=== PATIENT | male | born 1990 | race Caucasian/White ===

== ENCOUNTER 2025-05-27 09:38 | Outpatient (AMB) | payer OTHER, SELFPAY ==
--- NOTE | 2025-05-27 09:54 | MHC.PC.OV ---
Vital Signs 05/27/25 09:57 Height 5 ft 11.85 in Weight 285 lb 6 oz BMI 38.9 BP 140/76 H Blood Pressure Location Lt brachial Position Sitting Pulse 65 Pulse Source Pulse Oximeter Temp 97.1 F Temp Source Temporal Artery Scan Pulse Oximetry (%) 98 Oxygen Delivery Method Room Air Intake Visit Reasons: [employer] MECH[employer]IC-anxiety and depression Intake Note: Patient is a new patient here to establish care for Depression, Anxiety, Hx of kidney stone, hx blood urine, GERD, Diverticulitis, Hemorrhoids. Transferring care from [facility]). Medical records have been requested and have not received. Instrument Worker Required: No Sea Foam Kiss Maker: Present Accompanied by: Spouse Allergies No Known Allergies Allergy (Verified 05/27/25 10:04) Medication List - Last Reconciled 05/27/25 by Sarkis Coats MD escitalopram oxalate (Lexapro) 10 mg PO DAILY omeprazole 20 mg PO DAILY Tobacco use date assessed: 05/27/25 Dental Screening Dental Screen Date: 05/27/25 Did you have a dental visit in the last 12 months?: No Did you have a dental problem in the last 6 months where you did not have access to dental care?: No Was dental information given to patient?: No HPI HPI Comments History of Present Illness Details The patient is a 34 year old male with PMH of DOE, GERD, Hemorrhoids, presenting for his first visit to establish care. He is currently taking omeprazole for acid reflux and Lexapro, which was prescribed about four years ago for anger issues and has been effective. He reports acid reflux symptoms every two to three days without medication, and notes that it depends on his diet, particularly soda consumption. Past medical history is significant for a hemorrhoid that has been present for two years, a broken leg at age 14 requiring a metal amairani, kidney stone removal, a pulled tooth, and a couple of dislocated joints. 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 He recently experienced a back sprain while moving about two weeks ago, which has improved with a heating pad, but he still avoids bending over too much. Family history is positive for Alzheimer's disease in his mother and maternal grandmother. He denies smoking. He has tried therapy in the past but did not find it helpful due to a poor connection with the therapist. [facility] Medical History (Updated 05/27/25 @ 11:30 by Sarkis Coats MD) Hx of nephrolithotomy with removal of calculi Surgical History (Updated 05/27/25 @ 10:09 by ARIANA Downing) History of tooth extraction History of surgery on lower extremity History of colonoscopy Family History (Updated 05/27/25 @ 10:10 by ARIANA Downing) Mother Alzheimer disease Father Bone cancer Other Mental health disorder Social History (Updated 05/27/25 @ 10:11 by ARIANA Downing) Housing: House Alcohol intake: current Alcohol intake frequency: holidays/special occasions only Patient Tobacco Use Status: Never used Tobacco e-Cigarette/Vaping Use: Never Used Second Hand Smoke Exposure: No service: No Current occupational status: employed 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 1. Little interest or pleasure in doing things: not at all 2. Feeling down, depressed, or hopeless: not at all 3. Trouble falling or staying asleep, or sleeping too much: several days 4. Feeling tired or having little energy: not at all 5. Poor appetite or overeating: several days 6. Feeling bad about yourself - or that you are a failure or have let yourself or your family down: several days 7. Trouble concentrating on things, such as reading the newspaper or watching television: not at all 8. Moving or speaking so slowly that other people could have noticed. Or the opposite - being so fidgety or restless that you have been moving around a lot more than usual: not at all 9. Thoughts that you would be better off or of hurting yourself in some way: not at all Total score: 3 Depression Screening Interpretation: Positive (Lexapro ) Depression Screening Follow-up: In treatment Depression Screening Done: Yes Source: Developed by Drs. Curtis Michaels, Jessenia Perez, Clive Chatman and colleagues, with an educational neal from [employer]. Thrive Questionnaire Date Thrive assessed: 05/27/25 I am a: Patient What is your living situation today?: I have a steady place to live Within the past 12 months, did the food you bought not last and you didn't have the money to get more?: Never true Within the past 12 months, did you worry whether your food would run out before you got money to buy more?: Never true Do you have trouble paying for medicines?: No Do you have trouble getting transportation to medical appointments?: No Do you have trouble paying your heating and electricity bill?: No Do you have trouble taking care of your child, family member or friend?: No Do you have trouble with day-to-day activities such as bathing, preparing meals, shopping, managing finances, etc.?: No Are you currently unemployed and looking for a job?: No Are you interested in more education?: No Please select the resources that you would like help with: None Currently or been in a relationship where the following occur: No concerns reported THRIVE Score: 0 AUDIT C Alcohol Use Questionnaire (AUDIT-C) 1. How often do you have a drink containing alcohol?: Monthly or less 2. How many drinks containing alcohol do you have on a typical day when you are drinking?: 1 or 2 3. How often do you have six or more drinks on one occasion?: Never Total Score: 1 DOE-7 AMB Questionnaire DOE-7 Date DOE - 7 assessed: 05/27/25 Feeling nervous, anxious, or on edge: 0 = Not at all Not being able to stop or control worryin = Not at all Worrying too much about different things: 0 = Not at all Trouble relaxin = Several days Being so restless that it is hard to sit still: 0 = Not at all Becoming easily annoyed or irritable: 1 = Several days Feeling afraid as if something awful might happen: 0 = Not at all Total DOE-7 score (0-4 normal; 5-9 mild; 10-14 moderate; 15-21 severe): 2 Source: Developed by Drs. Curtis Michaels, Jessenia Perez, Clive Chatman and colleagues, with an educational neal from [employer] Review of Systems Const Details: Positives besides what was mentioned in HPI are in BOLD Constitutional: No Weight Change, No Fever, No Chills, No Night Sweats, No Fatigue, No Malaise ENT/Mouth: No Hearing Changes, No Ear Pain, No Nasal Congestion, No Sinus Pain, No Hoarseness, No sore throat, No Rhinorrhea, No Swallowing Difficulty Eyes: No Eye Pain, No Swelling, No Redness, No Foreign Body, No Discharge, No Vision Changes Cardiovascular: No Chest Pain, No SOB, No PND, No Dyspnea on Exertion, No Orthopnea, No Claudication, No Edema, No Palpitations Respiratory: No Cough, No Sputum, No Wheezing, No Smoke Exposure, No Dyspnea Gastrointestinal: No Nausea, No Vomiting, No Diarrhea, No Constipation, No Pain, No Heartburn, No Anorexia, No Dysphagia, No Hematochezia, No Melena, No Flatulence, No Jaundice Genitourinary: No Dysmenorrhea, No DUB, No Dyspareunia, No Dysuria, No Urinary Frequency, No Hematuria, No Urinary Incontinence, No Urgency, No Flank Pain, No Urinary Flow Changes, No Hesitancy Musculoskeletal: No Arthralgias, No Myalgias, No Joint Swelling, No Joint Stiffness, No Back Pain, No Neck Pain, No Injury History Skin: No Skin Lesions, No Pruritis, No Hair Changes, No Breast/Skin Changes, No Nipple Discharge Neuro: No Weakness, No Numbness, No Paresthesias, No Loss of Consciousness, No Syncope, No Dizziness, No Headache, No Coordination Changes, No Recent Falls Psych: No Anxiety/Panic, No Depression, No Insomnia, No Personality Changes, No Delusions, No Rumination, No SI/HI/AH/VH, No Social Issues, No Memory Changes, No Violence/Abuse Hx., No Eating Concerns Heme/Lymph: No Bruising, No Bleeding, No Transfusions History, No Lymphadenopathy Endocrine: No Polyuria, No Polydipsia, No Temperature Intolerance Physical exam (Primary Care) Vital Signs: Last Vital Signs Temp 97.1 F 05/27/25 09:57 Pulse 65 05/27/25 09:57 BP 140/76 H 05/27/25 09:57 Pulse Ox 98 05/27/25 09:57 Oxygen Delivery Method Room Air 05/27/25 09:57 BMI result Body Mass Index 38.9 Tobacco/Smoking Status: Tobacco use Status Tobacco use date assessed 05/27/25 05/27/25 10:12 Patient Tobacco Use Status Never used Tobacco 05/27/25 10:12 e-Cigarette/Vaping Use Never Used 05/27/25 10:12 PHQ-9: PHQ-9 Score PHQ-9: Total score 3 05/27/25 10:22 Depression Screening Interpretation: Positive (Lexapro ) Depression Screening Follow-up: In treatment Thrive Assessment: Date of Thrive Assessment Date Thrive assessed 05/27/25 05/27/25 10:12 Currently or been in a relationship where the following occur: No concerns reported Const Other: Pertinent findings are in BOLD GENERAL APPEARANCE NAD, activity normal for age, well developed/ well nourished, no cyanosis, pallor, or diaphoresis. EYES lids/conjunctiva normal. EARS/NOSE/THROAT Mucous membranes moist, nares normal, lips/teeth normal uvula midline without oral pharyngeal erythema, exudate or swelling TMs normal bilaterally. No lymphangitis/lymphedema. HEAD/NECK normocephalic atraumatic, no facial trauma, neck is supple. RESPIRATORY respiratory effort normal, speaks in full sentences, no tripod position, no accessory muscle use. Lungs clear to auscultation without rhonchi, wheezes, rales CARDIAC Regular rate and rhythm, no edema. ABDOMINAL Soft, ND/NT. No evidence of fluid wave. No pulsatile masses on exam, rebound tenderness, Gorman sign or pain over Mcburney's point. MUSCLES/EXTREMITIES No abnormal range of motion, no swelling. SKIN Warm, pink and dry. No rashes, dermatoses, petechiae or lesions. NEUROLOGICAL Speech is clear and appropriate. Normal level of consciousness. Gait and coordination are normal. 5/5 strength in all extremities. PSYCH Normal mood and affect. Judgement/competence is appropriate Coding Level of Care Code New Pt Level 5 (55636) Diagnoses Healthcare maintenance Z00.00 Gastroesophageal reflux disease without esophagitis K21.9 Esophagitis presence: without esophagitis DOE (generalized anxiety disorder) F41.1 Hemorrhoids, unspecified hemorrhoid type K64.9 Hemorrhoid type: unspecified Sprain of low back, initial encounter S33.5XXA Encounter type: initial encounter Tinea pedis of right foot B35.3 Laterality: right Elevated blood pressure reading R03.0 Time Spent (min) 30 Assessment & Plan Assessment & Plan (1) Healthcare maintenance: Code(s): Z00.00 - Encounter for general adult medical examination without abnormal findings Category: Medical Plan: Ordered general labs. Rest of Healthcare maintenance will be addressed during PE in 6 months. (2) GERD (gastroesophageal reflux disease): Code(s): K21.9 - Gastro-esophageal reflux disease without esophagitis Category: Medical Qualifiers: Esophagitis presence: without esophagitis Qualified Code(s): K21.9 - Gastro-esophageal reflux disease without esophagitis Plan: - Continue omeprazole as needed. - Provided extensive counseling on dietary modifications, including reducing soda, sugar, red meat, and dairy to help manage symptoms and reduce inflammation. (3) DOE (generalized anxiety disorder): Code(s): F41.1 - Generalized anxiety disorder Category: Medical Plan: - Patient reports Lexapro is effective in managing anger. - Recommended exploring therapy options through his insurance, emphasizing the importance of finding a therapist with whom he connects well. (4) Hemorrhoids: Code(s): K64.9 - Unspecified hemorrhoids Category: Medical Qualifiers: Hemorrhoid type: unspecified Qualified Code(s): K64.9 - Unspecified hemorrhoids Plan: - Patient reports a chronic hemorrhoid for 2 years. - A prescription for suppositories was sent to the pharmacy for as-needed use when the hemorrhoid is symptomatic. - Discussed that dietary improvements may also help with this condition. (5) Low back sprain: Code(s): S33.5XXA - Sprain of ligaments of lumbar spine, initial encounter Category: Medical Qualifiers: Encounter type: initial encounter Qualified Code(s): S33.5XXA - Sprain of ligaments of lumbar spine, initial encounter Plan: - Patient sustained a back sprain while moving two weeks ago. - Condition has improved with use of a heating pad. - Advised to continue to be careful with bending. (6) Tinea pedis: Code(s): B35.3 - Tinea pedis Category: Medical Qualifiers: Laterality: right Qualified Code(s): B35.3 - Tinea pedis Plan: - Patient has a chronic fungal infection on his foot since childhood. - It is asymptomatic (non-pruritic, non-painful) and has not responded to past topical treatments. - No active treatment recommended at this time given the asymptomatic nature. (7) Elevated blood pressure reading: Code(s): R03.0 - Elevated blood-pressure reading, without diagnosis of hypertension Category: Medical Plan: - Patient's blood pressure was 140/76 mmHg in office. - Patient has a home blood pressure machine and reports previous elevated readings in the office were normal at home. - Instructed patient to monitor blood pressure at home for one week while relaxed. - Will manage with diet and lifestyle modifications at this time. DASH diet and elimination diet. Plan I discussed with the patient that his blood pressure today was borderline high at 140/76, and since he has a home monitor, I advised him to check it daily for a week to get a clearer picture. We agreed to defer pharmacologic treatment for now and focus on diet and lifestyle changes. I ordered a panel of general labs as well as screening for HIV and Hepatitis C, which he consented to. We had a lengthy discussion about the role of diet in his overall health, particularly concerning his acid reflux and general inflammation. I recommended he start by eliminating soda and consider a diet lower in red meat, dairy, and sugar. I explained that these changes could also potentially help with his chronic hemorrhoids. I will take over the prescription for his Lexapro. I also sent a prescription for hemorrhoid suppositories to his pharmacy for as-needed use. Regarding his mental health, I encouraged him to reconsider therapy and find a provider he trusts, noting that talk therapy can be very beneficial for stress and anger management alongside his medication. We will follow up in six months to review his lab results and progress. Orders: Orders Complete Blood Count no Diff Today Z00.00 - Encounter for general adult medical examination without abnormal findings Comprehensive Met. Panel Today Z00.00 - Encounter for general adult medical examination without abnormal findings UA and rflx microscopic Today Z00.00 - Encounter for general adult medical examination without abnormal findings Hepatitis C Antibody Reflex Today Z00.00 - Encounter for general adult medical examination without abnormal findings HIV Ab/Ag Today Z00.00 - Encounter for general adult medical examination without abnormal findings Hemoglobin A1c Today Z00.00 - Encounter for general adult medical examination without abnormal findings Lipid Panel Today Z00.00 - Encounter for general adult medical examination without abnormal findings TSH reflex Free T4 Today Z00.00 - Encounter for general adult medical examination without abnormal findings Medications: New hydrocortisone acetate (Hemmorex-HC) 30 mg GA DAILY 12 ea 0RF escitalopram oxalate (Lexapro) 10 mg PO DAILY 30 tabs 3RF omeprazole 20 mg PO DAILY 30 caps 2RF
[2025-05-27 09:57] VITALS: BP 140/76; PULSE 65; TEMP 36.2; O2SAT 98; BMI 38.9
== END 2025-05-27 10:41 | disposition home or self-care (01) ==
LOC: HO.HMCH 09:39
PROVIDERS: PCP Internal Medicine; Visit Provider Internal Medicine
DX: Z00.00 Encounter for general adult medical examination without abnormal findings (principal); K21.9 Gastro-esophageal reflux disease without esophagitis; F41.1 Generalized anxiety disorder; K64.9 Unspecified hemorrhoids; S33.5XXA Sprain of ligaments of lumbar spine, initial encounter; B35.3 Tinea pedis; R03.0 Elevated blood-pressure reading, without diagnosis of hypertension